=== PATIENT | male | born 1960 | race Caucasian/White ===

== ENCOUNTER 2021-02-10 15:23 | Emergency (ER) | payer OTHER, BC, SELFPAY ==
[2021-02-10 15:25] VITALS: BP 127/64; PULSE 53; RESP 18; TEMP 36.4; O2SAT 99; BMI 27.8
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
[2021-02-10 16:27] VITALS: BP 127/64; PULSE 53; RESP 18; TEMP 36.4
== END 2021-02-10 16:28 | disposition home or self-care (01) ==
PROVIDERS: Emergency Provider Emergency Medicine; PCP Family Medicine
DX: S29.012A Strain of muscle and tendon of back wall of thorax, initial encounter (principal); V53.5XXA Driver of pick-up truck or van injured in collision with car, pick-up truck or van in traffic accident, initial encounter; Y92.488 Other paved roadways as the place of occurrence of the external cause
CPT/HCPCS: 99281

== ENCOUNTER 2021-12-04 17:30 | Emergency (ER) | payer BC, SELFPAY ==
--- NOTE | 2021-12-04 17:59 | HMH.EDUTC ---
[facility] [place] Clinical Impression: Viral syndrome, Bronchitis Sinusitis Qualifiers: Sinusitis location: unspecified location Chronicity: acute Recurrence: non-recurrent Qualified Code(s): J01.90 - Acute sinusitis, unspecified Disposition: Home, Self-Care Condition on Discharge: Good Instructions: DI for Sinusitis, DI for Acute Bronchitis Additional Instructions: Drink plenty of fluids. Take tylenol or ibuprofen for pain or fever. Take the medications as directed. Follow up with your regular doctor. GO TO THE ER FOR ANY WORSENING SYMPTOMS Don't start the oral steroids until tomorrow, since you had the shot here today. Prescriptions: methylPREDNISolone [Medrol] 4 mg PO DIRECTED 6 Days #21 packet Transmission Status: Received by [facility] Azithromycin [Z-Ridge 250mg Tab*] 250 mg PO UD DOSE PK #6 tab Transmission Status: Received by [facility] Referrals: Cj Garg [Primary Care Provider] - Time of Disposition: 18:54 Medical Decision Making - Medical Records Medical records reviewed: No: I reviewed the patient's medical records. - Rakesh Inquiry Pt receiving controlled substance: No Vital Signs: 12/04/21 18:00 12/04/21 18:58 Temperature 98.9 F 98.9 F Temperature Source Oral Pulse Rate 63 Pulse Rate [Left] 63 Respiratory Rate 18 18 Blood Pressure 140/72 Blood Pressure [Right Arm] 140/72 Blood Pressure Mean [Right Arm] 94 02 Sat by Pulse Oximetry 96 - Lab Data Lab results reviewed: Yes: I reviewed the patient's lab results. Lab Results 12/04/21 18:06: Influenza Type A Ag Negative, Influenza Type B Ag Negative Orders (Tests/Meds): ED MEDICATIONS Discontinued Medications Generic Name Dose Route Start Last Admin Trade Name Freq PRN Reason Stop Dose Admin Ceftriaxone Sodium 1 gm 12/04/21 18:49 12/04/21 18:58 Ceftriaxone 1gm Vial IM 12/04/21 18:50 1 gm ONCE ONE Administration Lidocaine HCl 0 ml 12/04/21 18:49 12/04/21 18:58 Lidocaine 1% 5ml Pf Vial IM 12/04/21 18:50 2 ml ONCE ONE Administration Methylprednisolone Sodium Succinate 125 mg 12/04/21 18:49 12/04/21 18:57 Methylprednisolone Sod Succ 125mg Vial IM 12/04/21 18:50 125 mg ONCE ONE Administration [facility] [place] - General Stated complaint: chills,Runny nose&eys Time Seen by Provider: 12/04/21 17:59 - History of Present Illness Provider Complaint: He states that he has had a sore throat, cough, runny nose, chills, fever and he has felt bad for the past 3 days. - Related Data Previous Rx's Medication Instructions Recorded Azithromycin [Z-Ridge 250mg Tab*] 250 mg PO UD DOSE PK #6 tab 09/22/19 methylPREDNISolone [Medrol] 4 mg PO DIRECTED 6 Days #21 09/22/19 tab.ds.pk methocarbamoL [Methocarbamol 500mg 1,000 mg PO Q8H PRN #30 tab 02/10/21 Tablet] Azithromycin [Z-Ridge 250mg Tab*] 250 mg PO UD DOSE PK #6 tab 12/04/21 methylPREDNISolone [Medrol] 4 mg PO DIRECTED 6 Days #21 12/04/21 packet Allergies Allergy/AdvReac Type Severity Reaction Status Date / Time No Known Allergies Allergy Verified 12/04/21 18:05 [facility] History - Hepatitis A Screen Attestation statement:: This patient has been screened for Hepatitis A risk factors. I have reviewed the patient's past medical history: Yes - Social History Alcohol Intake: never Occupational Status: employed ROS Obtained: Yes All systems reviewed & no additional complaints - Constitutional Constitutional: Denies chills, Denies fever(s), Reports poor appetite, Reports malaise - Eyes Eyes: Reports as per HPI, Denies eye discharge - ENT Ears, Nose, Mouth, and Throat: Reports as per HPI - Cardiovascular Cardiovascular: Denies chest pain - Respiratory Respiratory: Reports chest congestion, Reports cough Physical Exam - General General appearance: alert, in no apparent distress - Head Head exam: atraumatic, normocephalic, normal inspection - Ey
[2021-12-04 18:00] VITALS: BP 140/72; PULSE 63; RESP 18; TEMP 37.2; O2SAT 96; BMI 28.5
[2021-12-04 18:07] LABS: UTC Influenza A Antigen Negative (Negative); UTC Influenza B Antigen Negative (Negative)
[2021-12-04 18:58] VITALS: BP 140/72; PULSE 63; RESP 18; TEMP 37.2
== END 2021-12-04 19:06 | disposition home or self-care (01) ==
PROVIDERS: Emergency Provider Nurse Practitioner Family; PCP Family Medicine
DX: J01.90 Acute sinusitis, unspecified (principal); J02.9 Acute pharyngitis, unspecified; Z79.52 Long term (current) use of systemic steroids; Z79.899 Other long term (current) drug therapy
CPT/HCPCS: 87804; 96372; 99213; G0463; J0696

== ENCOUNTER 2024-10-12 14:26 | Outpatient (CLI) | payer BC, SELFPAY ==
[2024-10-12 21:07] LABS: Coronavirus 19, PCR Not Detected (NotDetected); Human Rhinovirus Not Detected (NotDetected); Influenza A, PCR Not Detected (NotDetected); Influenza B, PCR Not Detected (NotDetected); Respiratory Syncytial Virus Not Detected (NotDetected)
== END 2024-10-12 23:59 | disposition home or self-care (01) ==
LOC: LAB.DROPOF 10-16 14:27
PROVIDERS: PCP Family Medicine; Visit Provider Nurse Practitioner
DX: B34.9 Viral infection, unspecified (principal)
CPT/HCPCS: 87631